=== PATIENT | female | born 1990 | race Caucasian/White ===

== ENCOUNTER 2017-02-23 15:30 | Inpatient (IN) ==
[2017-03-08] MEDS ORDERED: CARBOPROST 250 MCG/ML INJECTION IM PRN (06:30)
[2017-03-08] MEDS ORDERED: OXYTOCIN DRIP 30 UNIT/500 ML ML IV PRN (06:30)
[2017-03-08] MEDS ORDERED: MAG-AL + SIM ORAL LIQUID 30ml PO PRN (06:30)
[2017-03-08] MEDS ORDERED: LIDOCAINE 1% (10mg/ml) 2mL INJ PF SDV ID PRN (06:30)
[2017-03-08] MEDS ORDERED: ACETAMINOPHEN 500 MG TABLET PO PRN (06:30)
[2017-03-08] MEDS ORDERED: CALCIUM CARBONATE Chewable 500mg TABLET PO PRN (06:30)
[2017-03-08] MEDS ORDERED: METHYLERGONOVINE 0.2 MG/ML INJECTION IM PRN (06:30)
[2017-03-08] MEDS ORDERED: D5LR 1,000 ML IV PRN (06:30)
[2017-03-08] MEDS: LR 1,000 ML IV PRN ×2 (07:01→08:47)
[2017-03-08] MEDS ORDERED: ROPIVACAINE 1% 10MG/ML INJ 200 MG, SUFentanil 50 MCG in NS 100 ML EPI PRN (09:11)
[2017-03-08] MEDS ORDERED: NALOXONE 0.4 MG/ML INJECTION IVP PRN (09:11)
[2017-03-08] MEDS ORDERED: ONDANSETRON 4 MG/2 ML INJECTION IVP PRN (09:11)
[2017-03-08] MEDS ORDERED: DiphenhydrAMINE 50 MG/ML INJECTION IVP PRN (09:11)
--- NOTE | 2017-03-08 09:11 | Anesthesia Preoperative Report ---
Anesthesia Epidural/Spinal Rec - Date and Time Date: 03/08/17 Preoperative Diagnosis: Procedure: Labor Epidural Plan: Epidural - Vital Signs Vital Signs: Temp Pulse Resp BP Pulse Ox 97.8 F 80 16 116/69 97 03/08/17 07:38 03/08/17 07:38 03/08/17 07:38 03/08/17 07:38 03/08/17 07:38 NPO since: 2300 /Para: P:1 Heart Rate: 120 - Medictaions & Allergies Inpatient Medications: Current Medications Acetaminophen (Tylenol) 500 - 1,000 mg PO Q4H PRN PRN Reason: Pain Al Hydroxide/Mg Hydroxide (Maalox Plus) 30 ml PO Q3H PRN PRN Reason: Indigestion Calcium Carbonate (Tums) 500 - 1,000 mg PO Q2H PRN PRN Reason: Indigestion Carboprost Tromethamine (Hemabate) 250 mcg IM O PRN PRN Reason: .Downtime Dextrose/Lactated Ringer's (Dextrose 5%-Lactated Ringers) 1,000 mls @ 125 mls/ hr IV .Q8H PRN PRN Reason: Labor Last Admin: 03/08/17 07:01 Dose: 125 mls/hr Lactated Ringer's (Lactated Ringers) 1,000 mls @ 1,000 mls/hr IV .Q1H PRN PRN Reason: as directed Last Admin: 03/08/17 08:47 Dose: 1,000 mls/hr Oxytocin (Pitocin Drip) 30 unit in 500 mls @ 2 mls/hr IV .Q24H PRN; Protocol PRN Reason: Induction/Augmentation Last Admin: 03/08/17 07:02 Dose: 2 mls/hr Lidocaine HCl (Xylocaine-Mpf 1% Vial) 0.2 mg ID O PRN PRN Reason: IV Start Methylergonovine Maleate (Methergine) 0.2 mg IM O PRN Misoprostol (Cytotec) 800 mcg MN ONCE PRN Allergies/Adverse Reactions: Allergies Allergy/AdvReac Type Severity Reaction Status Date / Time NKDA Allergy Uncoded 03/08/17 06:24 - Home Medications Home Medications: Home Medications Medication Instructions Recorded Confirmed Type Omeprazole Magnesium [Prilosec Otc] 20 mg PO DAILY #0 05/08/13 03/08/17 History Cetirizine HCl [Zyrtec] 1 tab PO DAILY 02/23/17 03/08/17 History Pnv No.95/Ferrous Fum/Folic AC 1 each PO DAILY 02/23/17 03/08/17 History [ Tablet] - Surgical History Anesthesia Reactions: None - Pertinent Findings Lab Data: CBC and BMP 03/08/17 06:53 - Physical Exam Respiratory Exam: lungs clear, bilateral breath sounds equal Cardiovascular Exam: regular rate and rhythm, no murmur - Airway Assessment Mallampati Score: II TMD: 3 Fingerbreadths Neck Extension: good Overall Assessment: no airway concerns - ASA ASA Score: 2 - Discussion Discussion: Discussed risks/options/alternatives of anesthesia and questions answered. Patient consents. Nursing pain assessment noted. Attestation Statement: Prior to the delivery of any anesthetic medication, I examined the patient, developed the plan, obtained the patient's consent and discussed the risk and benefits of the procedure with the patient/guardian.
[2017-03-08] MEDS ORDERED: DiphenhydrAMINE 25 MG CAPSULE PO PRN (12:21)
[2017-03-08] MEDS ORDERED: HYDROCODONE/APAP 5mg/325mg TABLET PO PRN (12:21)
[2017-03-08] MEDS ORDERED: OXYTOCIN DRIP 30 UNIT/500 ML ML IV SCH (12:21)
[2017-03-08] MEDS ORDERED: PHENYLEPHRINE RECTAL SUPPOSITORY PR PRN (12:21)
[2017-03-08] MEDS ORDERED: SALINE FLUSH 10ml SYRINGE IVF PRN (12:21)
[2017-03-08] MEDS: IBUPROFEN 800 MG TABLET PO PRN (19:48)
--- NOTE | 2017-03-08 22:07 | Labor and Delivery Note ---
DATE 03/08/2017 DELIVERY SUMMARY Catherine is a 26-year-old 2, para 1, at 40 weeks 1 day gestational age who was brought in for a Pitocin induction this morning. She received an epidural. Her membranes were ruptured artificially returning clear fluids. She progressed nicely throughout labor and pushed for a very short period of time. She had a spontaneous vaginal delivery in the LICHA position of a viable female infant. Apgars 8, 9. Weight 3604 grams. Name: "Miya." There was a posterior nuchal cord that was too tight to deliver through. The baby was vigorous at delivery, so she was placed on mom's abdomen and the cord clamping was delayed for more than 2 minutes. The placenta delivered spontaneously. She had a small second-degree laceration that was repaired. Mom and baby tolerated the delivery well. MTDChar
[2017-03-09] MEDS: IBUPROFEN 800 MG TABLET PO PRN (05:45)
--- NOTE | 2017-03-09 08:08 | OB/GYN Progress Note ---
OB-PP Progress Note - General PPD1 Group B Streptococcal Result: Negative Blood Type: O (+) positive Rubella OB HPI: immune - Subjective Date: 03/09/17 Lochia: Minimal Pain: contolled Pain: Only taking ibuprofen. Voiding: voiding - Objective Vital Signs: Last Vital Signs Temp 97.8 F 03/09/17 05:52 Pulse 63 03/09/17 05:52 Resp 16 03/09/17 05:52 BP 121/72 03/09/17 05:52 Pulse Ox 97 03/08/17 16:08 Urine Output: good General: alert and oriented Abdomen: non-tender Abdomen: FF Extremities: non-tender Laboratory: 03/08/17 06:53 - Assessment (1) (spontaneous vaginal delivery) Status: Acute - Plan Plan: discharge home, continue PNV
--- NOTE | 2017-03-09 08:10 | Discharge Summary ---
Discharge Plan - Med Rec/Dispo Prescriptions: New Acetaminophen [Tylenol] 500 - 1,000 mg PO Q4H PRN PRN Reason: Pain Ibuprofen [Motrin] 800 mg PO Q8H PRN #30 tab PRN Reason: Pain Continue Cetirizine HCl [Zyrtec] 1 tab PO DAILY Pnv No.95/Ferrous Fum/Folic AC [ Tablet] 1 each PO DAILY Omeprazole Magnesium [Prilosec Otc] 20 mg PO DAILY #0 - Disposition 01 Discharged Home, Self-Care
[2017-03-09] MEDS ORDERED: DOCUSATE CALCIUM 240 MG CAPSULE PO SCH (09:00)
--- NOTE | 2017-03-09 10:14 | Anesthesia Postoperative Note ---
- Date and Time Date: 03/09/17 Time: 10:07 - Status Patient Participated in Evaluation: Patient Participated in Person Vital Signs: Temp Pulse Resp BP Pulse Ox 97.8 F 63 16 121/72 97 03/09/17 05:52 03/09/17 05:52 03/09/17 05:52 03/09/17 05:52 03/08/17 16:08 Respiratory Function: Airway Patent, Regular Respirations Cardiovascular Function: Regular Pulse Mental Status: Alert and Oriented Pain Intensity: 0 Hydration: Taking PO Fluids Complications During Recover: None Apparent - Follow-Up Instructions Instructions: Per Surgeon
== END 2017-03-09 14:25 | disposition home or self-care (01) | DRG 775 ==
LOC: MC 03-08 06:19
PROVIDERS: ADMIT Obstetrics & Gynecology; ATTEND Obstetrics & Gynecology